=== PATIENT | male | born 2005 | race Two or more races ===

== ENCOUNTER 2024-03-18 17:59 | Emergency (ER) | payer OTHER ==
[~2024-03-18] VITALS: Ht 172.7 cm; Wt 68.2 kg
[~2024-03-18 17:59] MED LIST: ACET-2247 PO; MAGN-169 PO
[2024-03-18 18:09] VITALS: BP 100/70; PULSE 62; RESP 16; TEMP 98.4
[2024-03-18] MEDS ORDERED: PARO10TA89 PO (18:25)
[2024-03-18] MEDS ORDERED: MELO-108 PO (18:25)
[2024-03-18] MEDS: TraMADol HCL 50 MG TABLET PO ONE (18:56)
== END 2024-03-18 20:30 | disposition home or self-care (01) ==
LOC: EMS 18:05
DX: T16.1XXA Foreign body in right ear, initial encounter (principal); F32.A Depression, unspecified; F12.90 Cannabis use, unspecified, uncomplicated; F15.90 Other stimulant use, unspecified, uncomplicated; F11.90 Opioid use, unspecified, uncomplicated; W44.9XXA Unspecified foreign body entering into or through a natural orifice, initial encounter; Y93.89 Activity, other specified; Y92.89 Other specified places as the place of occurrence of the external cause; Y99.8 Other external cause status
CPT/HCPCS: 99282; 99283

== ENCOUNTER 2024-06-07 03:08 | Emergency (ER) | payer OTHER ==
[~2024-06-07] VITALS: Ht 175.3 cm; Wt 63.6 kg
[~2024-06-07 03:08] MED LIST changes: -ACET-2247 PO; -MAGN-169 PO; +MELO-108 PO; +PARO10TA89 PO
[2024-06-07 03:27] VITALS: TEMP 97.9
[2024-06-07 04:48] LABS: APPEARANCE,URINE CLEAR (CLEAR); BILIRUBIN,URINE NEGATIVE (NEGATIVE); COLOR,URINE LIGHT YELLOW (YELLOW); GLUCOSE, URINE (UA) NEGATIVE (NEGATIVE); KETONES,URINE TRACE mg/dL (NEGATIVE); LEUKOCYTE ESTERASE ,URINE NEGATIVE (NEGATIVE); NITRATE,URINE NEGATIVE (NEGATIVE); OCCULT BLOOD,URINE MODERATE (NEGATIVE); PH,URINE 6.5 (5.0-8.0); PH,URINE DRUG SCREEN 6.5 (5.0-8.0); PROTEIN,URINE NEGATIVE (NEGATIVE); SPECIFIC GRAVITIY, URINE 1.014 (1.003-1.030); UROBILINOGEN,URINE <=1.0 mg/dL (<=1.0)
[2024-06-07] MEDS: LIDOCAINE 2% VISCOUS 15 ML SOLUTION UDCUP TP ONE (04:51)
[2024-06-07 04:53] LABS: AMPHET/METH SCREEN,URINE POSITIVE (NEGATIVE); BARBITURATE SCREEN, URINE NEGATIVE (NEGATIVE); BENZODIAZEPINES SCREEN,URINE NEGATIVE (NEGATIVE); CANNABINOID SCREEN,URINE NEGATIVE (NEGATIVE); COCAINE SCREEN,URINE NEGATIVE (NEGATIVE); METHADONE SCREEN, URINE NEGATIVE (NEGATIVE); OPIATE SCREEN,URINE POSITIVE (NEGATIVE); PHENCYCLIDINE SCREEN,URINE NEGATIVE (NEGATIVE)
[2024-06-07 04:56] LABS: ALCOHOL, URINE DRUG SCREEN NEGATIVE (NEGATIVE)
[2024-06-07 05:09] LABS: WBC,URINE 0-2 /HPF (0-5)
[2024-06-07 05:10] LABS: BACTERIA,URINE Rare /HPF (None Seen)
[2024-06-07] MEDS: IBUPROFEN 600 MG TABLET PO ONE (05:49)
[2024-06-07 05:56] VITALS: BP 143/72; PULSE 110; RESP 18
== END 2024-06-07 06:07 | disposition home or self-care (01) ==
LOC: EMS 03:08
DX: N50.812 Left testicular pain (principal); N50.811 Right testicular pain; R33.9 Retention of urine, unspecified; F32.A Depression, unspecified; F12.90 Cannabis use, unspecified, uncomplicated; F15.90 Other stimulant use, unspecified, uncomplicated; F11.90 Opioid use, unspecified, uncomplicated
CPT/HCPCS: 51702; 76870; 80307; 81001; 99284